=== PATIENT | female | born 1960 | race Caucasian/White ===

== ENCOUNTER → 2017-05-18 16:05 | Outpatient (CLI) | payer BC | END | disposition home or self-care (01) | LOC: D.MAMMO 13:45 | DX: Z12.31 Encounter for screening mammogram for malignant neoplasm of breast (principal) ==

== ENCOUNTER 2018-09-13 01:18 | Emergency (ER) | payer OTHER ==
[~2018-09-13] VITALS: Ht 170.2 cm; Wt 73.7 kg
[2018-09-13 01:24] VITALS: Ht 170.2 cm; Wt 73.7 kg
[2018-09-13] MEDS ORDERED: LIPITOR20 MG (01:26)
[2018-09-13] MEDS ORDERED: LISINOPRIL10 MG (01:26)
[2018-09-13] MEDS ORDERED: NORVASC2.5 MG (01:26)
[2018-09-13] MEDS ORDERED: COREG 3.1253.125 MG (01:26)
[2018-09-13] MEDS ORDERED: ULTRAM50 MG PO (02:11)
[2018-09-13 02:24] VITALS: BP 122/75
== END 2018-09-13 02:26 | disposition home or self-care (01) ==
LOC: D.ER 01:18
DX: G62.9 Polyneuropathy, unspecified (principal); M79.672 Pain in left foot; M79.671 Pain in right foot; I10 Essential (primary) hypertension

== ENCOUNTER 2018-10-21 15:00 | Emergency (ER) | payer OTHER ==
[~2018-10-21] VITALS: Ht 170.2 cm; Wt 74.8 kg
[~2018-10-21 15:00] MED LIST: COREG 3.1253.125 MG; LIPITOR20 MG; LISINOPRIL10 MG; NORVASC2.5 MG; ULTRAM50 MG PO
[2018-10-21 15:24] VITALS: Ht 170.2 cm; Wt 74.8 kg
[2018-10-21] MEDS ORDERED: AUGMENTIN 875-11 TAB PO (15:27)
[2018-10-21] MEDS ORDERED: BUPROPION HCL75 MG PO (15:32)
[2018-10-21] MEDS ORDERED: TRAZODONE HCL150 MG PO (15:32)
[2018-10-21] MEDS ORDERED: CARAFATE1 G PO (15:33)
[2018-10-21] MEDS ORDERED: HYDROCODON-ACE1 EAC2 PO (18:35)
[2018-10-21 19:12] VITALS: BP 163/97
== END 2018-10-21 19:00 | disposition home or self-care (01) ==
LOC: D.ER 15:00
DX: L03.114 Cellulitis of left upper limb (principal); W55.01XA Bitten by cat, initial encounter

== ENCOUNTER 2020-03-30 14:03 | Emergency (ER) | payer OTHER ==
[~2020-03-30] VITALS: Ht 170.2 cm; Wt 73.6 kg
[~2020-03-30 14:03] MED LIST changes: +AUGMENTIN 875-11 TAB PO; +BUPROPION HCL75 MG PO; +CARAFATE1 G PO; +HYDROCODON-ACE1 EAC2 PO; +TRAZODONE HCL150 MG PO
[2020-03-30 14:32] VITALS: BP 158/96; Ht 170.2 cm; Wt 73.6 kg
[2020-03-30] MEDS ORDERED: TYLENOL W/CODEI1 TAB PO (17:07)
[2020-03-30] MEDS ORDERED: CLEOCIN HCL300 MG PO (17:07)
== END 2020-03-30 18:05 | disposition home or self-care (01) ==
LOC: D.ER 14:03
DX: L03.114 Cellulitis of left upper limb (principal); S60.413A Abrasion of left middle finger, initial encounter; W18.30XA Fall on same level, unspecified, initial encounter; I10 Essential (primary) hypertension; E78.5 Hyperlipidemia, unspecified; K21.9 Gastro-esophageal reflux disease without esophagitis

== ENCOUNTER 2020-04-13 23:08 | Inpatient (IN) | payer OTHER ==
[~2020-04-13] VITALS: Ht 170.2 cm; Wt 73.0 kg
[~2020-04-13 23:08] MED LIST changes: +CLEOCIN HCL300 MG PO; +TYLENOL W/CODEI1 TAB PO
[2020-04-13 23:34] LABS: BASOPHILS 0.1 % (0-2); EOSINOPHILS 3.9 % (0-7); HEMATOCRIT 38.2 % (36.0-48.0); HEMOGLOBIN 12.9 g/dL (12-16); IMMATURE GRANULOCYTES 0.1 % (0-5); LYMPHOCYTES 31.6 % (15-50); MCH 31.2 pg (26.0-34.0); MCHC 33.8 g/dL (31.0-37.0); MCV 92.3 fL (80.0-100.0); MEAN PLATELET VOLUME 9.9 fL (7.4-10.4); MONOCYTES 6.3 % (2-11); PLATELET COUNT 260 10x3/uL (130-400); RBC 4.14 10x6/uL (4.00-5.40); RDW 12.6 % (11.5-14.5); WBC 7.1 10x3/uL (4.8-10.8)
[2020-04-13 23:46] LABS: CALC OSMOLALITY 273 mosm/kg (275-300); CALCIUM 9.4 mg/dL (8.5-10.1); CHLORIDE - SERUM 101 mmol/L (98-107); GLUCOSE 114 mg/dL (74-106); POTASSIUM - SERUM 3.8 mmol/L (3.5-5.1); SODIUM 136 mmol/L (136-145); UREA NITROGEN 15 mg/dL (7-18); eGFR NON AFRICAN AMERICAN 60 mL/min (90-120)
[2020-04-13 23:52] LABS: ALBUMIN 4.1 g/dL (3.4-5.0); ALKALINE PHOSPHATASE 115 U/L (30-120); ALT (SGPT) 28 U/L (10-68); BILIRUBIN - TOTAL 0.23 mg/dL (0.2-1.3); C-REACTIVE PROTEIN < 0.2 mg/dL (0.0-0.9)
[2020-04-14] VITALS (10 sets, daily range): BP systolic 129–176; BP diastolic 59–105; Ht 170.2 cm; Wt 73.0 kg
--- NOTE | 2020-04-14 00:07 | NUR ---
PT TO CT AT THIS TIME.
--- NOTE | 2020-04-14 00:15 | NUR ---
PT BACK FROM CT AT THIS TIME.
--- NOTE | 2020-04-14 02:11 | NUR ---
PT TO ROOM 2227 VIA WHEELCHAIR ACCOMPANIED BY HOSPITAL STAFF. AMBULATES AROUND ROOM WITHOUT ISSUE.
[2020-04-14] MEDS ORDERED: HYDROCODON-ACE1 EAC7 PO (02:41)
[2020-04-14] MEDS ORDERED: VALIUM 2 MG TAB2 MG PO (02:42)
[2020-04-14] MEDS ORDERED: ZYRTEC10 MG PO (02:43)
--- NOTE | 2020-04-14 07:15 | NUR ---
RECEIVED BEDSIDE REPORT. PT SITTING UP IN BED, A&O X4. C/O PAIN 5/10 IN LEFT MIDDLE FINGER. PIV IN R FOREARM, PATENT AND INFUSING, NO REDNESS OR SWELLING. REDNESS, SWELLING, IMPAIRED ROM IN LEFT MIDDLE FINGER, PLANNED I&D TODAY. FULL DENTURES AT BEDSIDE. PT ABLE TO AMBULATE WITHOUT ASSIST. EDUCATED PT ON PLANNED PROCEDURE, CL AND NEEDS. BED LOW, RAILS X2. CL IN REACH. WILL CONTINUE TO MONITOR.
--- NOTE | 2020-04-14 09:30 | NUR ---
ASSISTED PT IN CHG BATH, EKG PERFORMED, JEWELRY REMOVED, CONSENTS SIGNED. PT VERBALIZED UNDERSTANDING AND SIGNED CONSENT FORMS. WILL CONTINUE TO MONITOR.
--- NOTE | 2020-04-14 10:15 | NUR ---
GAVE PREOP MEDS, D/C IV PUMP. OR NURSE ESCORTED PT VIA BED TO OR.
--- NOTE | 2020-04-14 11:30 | NUR ---
PT ARRIVED BACK TO FLOOR FROM PROCEDURE. RECEIVED REPORT, VS WNL. PT ASLEEP, EASY TO AROUSE. STARTED IV FLUIDS AND GAVE MEDS, PT TOLERATED WELL. PROVIDED ICE WATER AND SET VS EQUIPMENT FOR Q15 MIN. BED LOW, RAILS X2. CL IN REACH, WILL CONTINUE TO MONITOR.
--- NOTE | 2020-04-14 12:44 | OP ---
PATIENT NAME: RICHARD GOMEZ MEDICAL RECORD: [id number] :62 LOCATION:[id number] ADMISSION DATE:04/14/20 SURGEON: RADHA SALES MD DATE OF OPERATION: 04/14/2020 PREOPERATIVE DIAGNOSIS: Osteomyelitis of the left long finger proximal interphalangeal joint. POSTOPERATIVE DIAGNOSIS: Osteomyelitis of the left long finger proximal interphalangeal joint. PROCEDURE: Excisional debridement to include skin, subcutaneous tissue, portions of fascia and bone. SURGEON: Radha Sales MD DRY KILN OPERATOR: MARIELOS Abernathy ANESTHESIA: General. INTRAOPERATIVE COMPLICATIONS: None. SUMMARY OF PATHOLOGIC FINDINGS: The patient did have erosive changes about the proximal aspect of the condyles with intra-articular purulence. This was cultured. The patient's extensor mechanism was eroded through and required reapproximation with stabilization postoperatively. OPERATIVE SUMMARY IN DETAIL: After obtaining the appropriate preoperative orthopedic surgery consent as well as anesthetic consultation, evaluation and clearance, the patient was brought to the operating room and placed on the operating table in a supine position. After adequate general laryngeal mask airway was administered, tourniquet was placed about the proximal aspect of the left upper extremity. Left upper extremity was then prepped and draped in routine sterile fashion. At this point, appropriate timeout was taken and agreed upon by all given the patient's unique identifiers. The arm was elevated and exsanguinated, tourniquet inflated to 250 mmHg. A Z-plasty incision was made over the knuckle as the patient's purulence was right in the midline. The flaps were very gently elevated and substantial amounts of purulence and granulation tissue was noted. Cultures were taken, all nonviable-appearing tissue was removed. The patient did have perforation and almost complete destruction of the dorsal eugene. The residual nerve that had not been completely macerated was incised and gently retracted to reveal the patient's articular surface. Findings as noted were seen. Copious irrigation was followed by micro curettage as well as rongeur debridement to remove any parts of the bone that appeared to be osteomyelitic. Again, further irrigation was carried out. Having completed a substantial irrigation, the dorsal eugene was reapproximated with 3-0 Vicryl while holding the finger straight. Good reapproximation and lateral reconstruction was achieved. Having completed this, the Z-plasty was closed with 4-0 Prolene in routine interrupted fashion. Sterile dressings were applied. A palmar splint was applied to maintain the DIP joint straight. Having completed this, the tourniquet was deflated. The patient was awakened and taken to the recovery room in stable condition. All final needle and sponge counts were correct. TRANSINT:[id number] Voice Confirmation ID: [id number] DOCUMENT ID: [id number] OPERATIVE REPORT [id number] RICHARD GOMEZ MD, RADHA ESPARZA at 1244 CC: [id number] DICTATION DATE: 04/14/20 1110 FLYING TEACHER: 04/14/20 1133 ADM IN [place] [id number] [place] [address]
--- NOTE | 2020-04-14 13:15 | NUR ---
PT C/O PAIN 03/05, PROVIDED PAIN MEDS PER ORDER. BED LOW, CL IN REACH.
--- NOTE | 2020-04-14 16:00 | NUR ---
PT C/O 9/10 PAIN IN HAND, PROVIDED PAIN MEDS PER ORDER. PROVIDED PT WITH ICE PACK. BED LOW, CL IN REACH.
--- NOTE | 2020-04-14 17:30 | NUR ---
PT C/O STABBING PAIN 9/10 IN HAND, PROVIDED PAIN MEDS PER ORDER, PROVIDED NEW ICE PACK.
--- NOTE | 2020-04-14 19:00 | NUR ---
BEDSIDE REPORT RECEIVED AND CARE OF PT ASSUMED. PT LYING IN MID SPARKS'S POSITION WITH LEFT HAND PROPPED UP ON PILLOW WITH ICE PACK IN USE. IV TO RIGHT FA PATENT WITH NS INFUSING AT 100 ML/HR. WILL MONITOR CLOSELY FOR NEEDS.
--- NOTE | 2020-04-14 20:05 | NUR ---
GAVE SCHEDULED ZOZYN AND PRN MORPHINE PER REQUEST FOR PAIN.
--- NOTE | 2020-04-14 22:09 | NUR ---
HS MEDICATIONS GIVEN TO INCLUDE MORPHINE 4 MG IVP PER REQUEST FOR PAIN. WILL CONTINUE TO MONITOR CLOSELY FOR NEEDS.
[2020-04-15 00:31] VITALS: BP 137/87
[2020-04-15 05:57] VITALS: BP 136/79
[2020-04-15 06:11] LABS: BASOPHILS 0.5 % (0-2); EOSINOPHILS 6.8 % (0-7); HEMOGLOBIN 11.4 g/dL (12-16); IMMATURE GRANULOCYTES 0.2 % (0-5); LYMPHOCYTES 37.6 % (15-50); MCH 30.1 pg (26.0-34.0); MCHC 32.6 g/dL (31.0-37.0); MCV 92.3 fL (80.0-100.0); MEAN PLATELET VOLUME 10.6 fL (7.4-10.4); MONOCYTES 5.6 % (2-11); NEUTROPHILS 49.3 % (40-80); PLATELET COUNT 221 10x3/uL (130-400); RBC 3.79 10x6/uL (4.00-5.40); RDW 12.6 % (11.5-14.5)
[2020-04-15 06:16] LABS: WBC 4.4 10x3/uL (4.8-10.8)
[2020-04-15 07:13] LABS: ALBUMIN 3.2 g/dL (3.4-5.0); ALKALINE PHOSPHATASE 94 U/L (30-120); ALT (SGPT) 27 U/L (10-68); BILIRUBIN - TOTAL 0.54 mg/dL (0.2-1.3); CALC OSMOLALITY 278 mosm/kg (275-300); CALCIUM 8.7 mg/dL (8.5-10.1); CARBON DIOXIDE 26.3 mmol/L (21.0-32.0); CHLORIDE - SERUM 106 mmol/L (98-107); CREATININE - SERUM 0.8 mg/dL (0.6-1.3); GLUCOSE 100 mg/dL (74-106); POTASSIUM - SERUM 3.8 mmol/L (3.5-5.1); PROTEIN - SERUM 6.5 g/dL (6.4-8.2); SODIUM 141 mmol/L (136-145); eGFR NON AFRICAN AMERICAN 78 mL/min (90-120)
[2020-04-15 07:15] LABS: UREA NITROGEN 6 mg/dL (7-18)
[2020-04-15 08:16] VITALS: BP 143/83
--- NOTE | 2020-04-15 08:35 | NUR ---
RESTING IN BED WITH EYES OPEN WATCHING TV, ALERT AND ORIENTED. IV LOCATED TO LEFT FOREARM CURRENTLY RUNNNG NS @ 100ML. NO CURRENT S/S OF DISTRESS NOTED AT THIS TIME, DENIES NEEDS OTHER THAN NEEDING MORE ICE FOR ICE PACK. WILL CONT TO MONITOR.
--- NOTE | 2020-04-15 10:50 | NUR ---
PT REPORTS THROBBING PAIN 10/10, ADMINISTERED NORCO PER DRS ORDERS. WILL CONT TO MONITOR.
[2020-04-15 12:23] VITALS: BP 143/88
[2020-04-15 16:40] VITALS: BP 145/85
--- NOTE | 2020-04-15 19:00 | NUR ---
BEDSIDE REPORT RECEIVED AND CARE OF PT ASSUMED. PT SITTING UP IN BED WATCHING TV. ANGI WRAP ON LEFT ARM CLEAN AND DRY. IV TO RIGHT FA PATENT WITH NS INFUSING AT 50 ML/HR. WILL MONITOR FOR NEEDS.
--- NOTE | 2020-04-15 21:00 | NUR ---
PT SPONGE BATHED AND WASHED HAIR WITH NO RINSE CAP. ALL LINENS AND GOWN CHANGED.
[2020-04-15 21:16] VITALS: BP 145/86
--- NOTE | 2020-04-15 21:16 | NUR ---
HS MEDICATIONS GIVEN TO INCLUDE NORCO PO PRN ORDER, PER REQUEST FOR PAIN. WILL CONTINUE TO MONITOR FOR NEEDS.
[2020-04-16] VITALS (7 sets, daily range): BP systolic 124–164; BP diastolic 61–101
[2020-04-16 05:13] LABS: BASOPHILS 0.2 % (0-2); EOSINOPHILS 8.3 % (0-7); HEMATOCRIT 36.2 % (36.0-48.0); HEMOGLOBIN 11.7 g/dL (12-16); IMMATURE GRANULOCYTES 0.2 % (0-5); LYMPHOCYTES 40.8 % (15-50); MCH 29.7 pg (26.0-34.0); MCHC 32.3 g/dL (31.0-37.0); MCV 91.9 fL (80.0-100.0); MEAN PLATELET VOLUME 10.7 fL (7.4-10.4); MONOCYTES 6.7 % (2-11); NEUTROPHILS 43.8 % (40-80); PLATELET COUNT 233 10x3/uL (130-400); RBC 3.94 10x6/uL (4.00-5.40); RDW 12.3 % (11.5-14.5)
[2020-04-16 05:43] LABS: ALBUMIN 3.4 g/dL (3.4-5.0); ANION GAP 11.3 mmol/L (8-16); BILIRUBIN - TOTAL 0.39 mg/dL (0.2-1.3); CALCIUM 9.1 mg/dL (8.5-10.1); CARBON DIOXIDE 29.3 mmol/L (21.0-32.0); CREATININE - SERUM 0.9 mg/dL (0.6-1.3); POTASSIUM - SERUM 3.6 mmol/L (3.5-5.1); PROTEIN - SERUM 6.9 g/dL (6.4-8.2)
--- NOTE | 2020-04-16 16:00 | MORECARE ---
CASE MANAGEMENT DISCHARGE SUMMARY PATIENT: RICHARD GOMEZ UNIT: [id number] ADM DATE: 04/14/20 AGE: 60 : 62 SEX: F ROOM/BED: D.2227 AUTHOR: MILTON GERBER PHYSICIAN: REFERRING PHYSICIAN: RADHA SALES MD DATE OF SERVICE: 04/16/20 Discharge Plan Patient Name: RICHARD GOMEZ Facility: [facility]:[place] : 1960 Planned Disposition: Anticipated Discharge Date: Discharge Date: Expected LOS: Initial Reviewer: [id number] Initial Review Date: 04/14/2020 Generated: 04/16/20 5:00 pm Comments DCP- Discharge Planning Updated by [email or web address]: Jennie Horn on 04/16/20 3:[address] Patient Name: RICHARD GOMEZ Admission Status: ER Accout number: [id number] Admission Date: 04-14-2020 : 1960 Admission Diagnosis: Attending: RADHA SALES Current LOS: 2 Anticipated DC Date: Planned Disposition: Primary Insurance: [facility] PPO Discharge Planning Comments: CM met with patient at bedside after explaining CM role and obtaining verbal consent. CM discussed availability / needs of home health, REHAB and medical equipment. PATIENT MAY NEED IV ANTIBIOTICS AT DISCHARGE. SHE STATES SHE DOES NOT WANT HOME HEALTH. I WILL TALK WITH HER MORE ONCE WE KNOW WHAT ANTIBIOTIC SHE WILL BE GOING HOME WITH. CM TO FOLLOW AND ASSIST NEEDED. Senior Accounting Manager: Jennie Horn DCPIA - Discharge Planning Initial Assessment Updated by [email or web address]: Jennie Horn on 04/16/20 3:58 pm * Is the patient Alert and Oriented? Yes * PCP SKETAS * Pharmacy [facility] * Preadmission Environment Home with Family * ADLs Independent * Community resources currently utilized None * Additional services required to return to the preadmission environment? Yes * Can the patient safely return to the preadmission environment? Yes * Has this patient been hospitalized within the prior 30 days at any hospital? No Patient Name: RICHARD GOMEZ Page [phone] at 1600 All edits/amendments must be made on the electronic document DICTATION DATE: 04/16/201599 DISK RECORDIST: DM 04/16/201599 RPT#: [id number] DC DATE: STATUS: ADM IN [facility] [address] [place] [address] END OF REPORT
--- NOTE | 2020-04-16 19:00 | NUR ---
BEDSIDE REPORT RECEIVED AND CARE OF PT ASSUMED. PT SITTING UP IN BED WATCHING TV. IV TO RIGHT FA PATENT WITH NS INFUSING AT 50 ML/HR. ANGI WRAP ON LEFT HAND / ARM CLEAN AND INTACT. WILL MONITOR FOR NEEDS.
--- NOTE | 2020-04-16 22:23 | NUR ---
HS MEDICATIONS GIVEN. GAVE NORCO PO PER PRN ORDER FOR PAIN.
[2020-04-17] VITALS: BP 155/73
[2020-04-17 04:00] VITALS: BP 145/93
[2020-04-17 05:44] LABS: BASOPHILS 0.4 % (0-2); EOSINOPHILS 7.4 % (0-7); HEMATOCRIT 38.9 % (36.0-48.0); HEMOGLOBIN 12.9 g/dL (12-16); LYMPHOCYTES 37.8 % (15-50); MCH 30.4 pg (26.0-34.0); MCHC 33.2 g/dL (31.0-37.0); MCV 91.5 fL (80.0-100.0); MEAN PLATELET VOLUME 10.3 fL (7.4-10.4); MONOCYTES 5.8 % (2-11); NEUTROPHILS 48.6 % (40-80); PLATELET COUNT 225 10x3/uL (130-400); RBC 4.25 10x6/uL (4.00-5.40); RDW 12.4 % (11.5-14.5)
[2020-04-17 06:42] LABS: ALBUMIN 3.5 g/dL (3.4-5.0); ANION GAP 11.1 mmol/L (8-16); BILIRUBIN - TOTAL 0.41 mg/dL (0.2-1.3); CALCIUM 9.5 mg/dL (8.5-10.1); POTASSIUM - SERUM 4.1 mmol/L (3.5-5.1); PROTEIN - SERUM 6.9 g/dL (6.4-8.2)
--- NOTE | 2020-04-17 07:49 | NUR ---
PATIENT IN BED. AWAKE AND ALERT. FREE FROM SIGNS OF DISTRESS. DENIES PAIN OR NEEDS AT THIS TIME. BED LOW POSITION, CALL LIGHT IN REACH. WILL CONTINUE TO MONITOR.
[2020-04-17 08:56] VITALS: BP 144/93
--- NOTE | 2020-04-17 11:17 | NUR ---
Order received for PICC placement. On arrival, PICC discussed with patient and written consent obtained. Using site rite ultrasound, right upper arm basilic vein identified. Prep, drape and 1% xylocaine to site. Vein accessed and double lumen PICC inserted to 43 cm. Both lumens flush easily and with good blood return. Site verification using 3CG with rhythm strip. Site dressed with statlock, biopatch and tegaderm dressing. Patient tolerated well with less than 5 ml blood loss. Kristin Gray RN
[2020-04-17 12:20] VITALS: BP 140/80
--- NOTE | 2020-04-17 13:33 | MORECARE ---
CASE MANAGEMENT DISCHARGE SUMMARY PATIENT: RICHARD GOMEZ UNIT: [id number] ADM DATE: 04/14/20 AGE: 60 : 62 SEX: F ROOM/BED: D.2227 AUTHOR: ZABRINA,DOC PHYSICIAN: REFERRING PHYSICIAN: RADHA SALES MD DATE OF SERVICE: 04/17/20 Discharge Plan Patient Name: RICHARD GOMEZ Facility: [facility]:[place] : 1960 Planned Disposition: Anticipated Discharge Date: Discharge Date: Expected LOS: Initial Reviewer: [email or web address] Initial Review Date: 04/14/2020 Generated: 04/17/20 2:33 pm Comments DCP- Discharge Planning Updated by [email or web address]: Re Brown on 04/17/20 12:[address] Patient has been set up for Outpatient IV ABX at [facility]. I spoke with Nidia. Patient will need to go to the front entrance at 1400 registration everyday. She will start on . DCP- Discharge Planning Updated by [email or web address]: Jennie Horn on 04/16/20 3:[address] Patient Name: RICHARD GOMEZ Admission Status: ER Accout number: [id number] Admission Date: 04-14-2020 : 1960 Admission Diagnosis: Attending: RADHA SALES Current LOS: 2 Anticipated DC Date: Planned Disposition: Primary Insurance: [facility] PPO Discharge Planning Comments: CM met with patient at bedside after explaining CM role and obtaining verbal consent. CM discussed availability / needs of home health, REHAB and medical equipment. PATIENT MAY NEED IV ANTIBIOTICS AT DISCHARGE. SHE STATES SHE DOES NOT WANT HOME HEALTH. I WILL TALK WITH HER MORE ONCE WE KNOW WHAT ANTIBIOTIC SHE WILL BE GOING HOME WITH. CM TO FOLLOW AND ASSIST NEEDED. Optics Test Technician: Jennie Horn DCPIA - Discharge Planning Initial Assessment Updated by [email or web address]: Jennie Horn on 04/16/20 3:58 pm * Is the patient Alert and Oriented? Yes * PCP SKETAS * Pharmacy [facility] * Preadmission Environment Home with Family * ADLs Independent * Community resources currently utilized None * Additional services required to return to the preadmission environment? Yes * Can the patient safely return to the preadmission environment? Yes * Has this patient been hospitalized within the prior 30 days at any hospital? No Last DP export: 04/16/20 3:00 p Patient Name: RICHARD GOMEZ Page [phone] at 1333 All edits/amendments must be made on the electronic document DICTATION DATE: 04/17/201332 BEATER MACHINE OPERATOR: SUNITHA 04/17/20 1333 RPT#: [id number] DC DATE: STATUS: ADM IN [facility] [address] [place] [address] END OF REPORT
[2020-04-17 18:08] VITALS: BP 144/97
--- NOTE | 2020-04-17 18:13 | NUR ---
I have reviewed this patient and I concur with the Shift Assessment completed by the Licensed Practical Nurse today this shift.
--- NOTE | 2020-04-17 19:40 | NUR ---
rESTIN IN BED ALERT AND ORENTED ABLE TO VOICE NEEDS AND WANTS TO STAFF. ON ROOM AIR PICC IN PLACE TO UPPER RIGHT ARE. RIGHT FOREARM IN PLACE AND PATEN WITH NS PER ORDERS. DRESSING INTACT TO LEFT MIDDLE FINGER. NO NEEDS AT THIS TIME NO C/O PAIN WATER AND CALL LIGHT IN REACH.
[2020-04-17 20:00] VITALS: BP 151/97
[2020-04-18] VITALS: BP 186/90
[2020-04-18 04:00] VITALS: BP 149/86
[2020-04-18 06:48] LABS: BASOPHILS 0.3 % (0-2); EOSINOPHILS 6.3 % (0-7); HEMATOCRIT 38.7 % (36.0-48.0); HEMOGLOBIN 12.7 g/dL (12-16); LYMPHOCYTES 35.5 % (15-50); MCH 30.2 pg (26.0-34.0); MCHC 32.8 g/dL (31.0-37.0); MCV 92.1 fL (80.0-100.0); MONOCYTES 6.6 % (2-11); NEUTROPHILS 51.3 % (40-80); PLATELET COUNT 232 10x3/uL (130-400); RDW 12.5 % (11.5-14.5)
[2020-04-18 07:03] LABS: WBC 6.4 10x3/uL (4.8-10.8)
--- NOTE | 2020-04-18 07:43 | NUR ---
PATIENT BACK TO BED FROM BATHROOM. FREE FROM SIGNS OF DISTRESS. DENIES PAIN OR NEEDS AT THIS TIME. BED LOW POSITION, CALL LIGHTIN REACH. WILL CONTINUE TO MONITOR.
[2020-04-18 07:49] LABS: ALBUMIN 3.7 g/dL (3.4-5.0); ALKALINE PHOSPHATASE 97 U/L (30-120); ALT (SGPT) 29 U/L (10-68); BILIRUBIN - TOTAL 0.27 mg/dL (0.2-1.3); CALC OSMOLALITY 279 mosm/kg (275-300); CALCIUM 9.6 mg/dL (8.5-10.1); CARBON DIOXIDE 25.7 mmol/L (21.0-32.0); CHLORIDE - SERUM 102 mmol/L (98-107); CREATININE - SERUM 0.8 mg/dL (0.6-1.3); GLUCOSE 109 mg/dL (74-106); PROTEIN - SERUM 7.4 g/dL (6.4-8.2); SODIUM 139 mmol/L (136-145); UREA NITROGEN 15 mg/dL (7-18); eGFR NON AFRICAN AMERICAN 78 mL/min (90-120)
[2020-04-18] MEDS ORDERED: PERCOCET 10-321 EAC1 PO (09:03)
[2020-04-18] MEDS ORDERED: ROCEPHIN 1 GM/D51 G1 IV (09:03)
[2020-04-18 09:44] VITALS: BP 157/103
--- NOTE | 2020-04-18 10:38 | MORECARE ---
CASE MANAGEMENT DISCHARGE SUMMARY PATIENT: RICHARD GOMEZ UNIT: [id number] ADM DATE: 04/14/20 AGE: 60 : 62 SEX: F ROOM/BED: D.2227 AUTHOR: ZABRINA,DOC PHYSICIAN: REFERRING PHYSICIAN: RADHA SALES MD DATE OF SERVICE: 04/18/20 Discharge Plan Patient Name: RICHARD GOMEZ Facility: [facility]:[place] : 1960 Planned Disposition: Anticipated Discharge Date: Discharge Date: Expected LOS: Initial Reviewer: [email or web address] Initial Review Date: 04/14/2020 Generated: 04/18/20 11:37 am Comments DCP- Discharge Planning Updated by [id number]: Jennie Horn on 04/18/20 9:[address] Patient Name: RICHARD GOMEZ Admission Status: ER Accout number: [id number] Admission Date: 04-14-2020 : 1960 Admission Diagnosis:CUTANEOUS ABSCESS OF LEFT HAND Attending: RADHA SALES Current LOS: 4 Anticipated DC Date: Planned Disposition: Primary Insurance: [employer] PPO Discharge Planning Comments: PATIENT IS DISCHARGING TO HOME TODAY. IV INFUSIONS HAVE BEEN SET UP DAILY WITH OUTPATIENT SERVICES FOR 10:30AM DAILY. PATIENT ALSO GIVEN CONTACT INFORMATION FOR [facility]. PATIENT HAS PICC LINE. CM TO FOLLOW AND ASSIST NEEDED. Neurourologist: Jennie Horn DCP- Discharge Planning Updated by [email or web address]: Re Brown on 04/17/20 12:[address] Patient has been set up for Outpatient IV ABX at [facility]. I spoke with Nidia. Patient will need to go to the front entrance at 1400 registration everyday. She will start on . DCP- Discharge Planning Updated by [email or web address]: Jennie Horn on 04/16/20 3:[address] Patient Name: RICHARD GOMEZ Admission Status: ER Accout number: [id number] Admission Date: 04-14-2020 : 1960 Admission Diagnosis: Attending: RADHA SALES Current LOS: 2 Anticipated DC Date: Planned Disposition: Primary Insurance: [employer] PPO Discharge Planning Comments: CM met with patient at bedside after explaining CM role and obtaining verbal consent. CM discussed availability / needs of home health, REHAB and medical equipment. PATIENT MAY NEED IV ANTIBIOTICS AT DISCHARGE. SHE STATES SHE DOES NOT WANT HOME HEALTH. I WILL TALK WITH HER MORE ONCE WE KNOW WHAT ANTIBIOTIC SHE WILL BE GOING HOME WITH. CM TO FOLLOW AND ASSIST NEEDED. Neurourologist: Jennie Horn DCPIA - Discharge Planning Initial Assessment Updated by [email or web address]: Jennie Horn on 04/16/20 3:58 pm * Is the patient Alert and Oriented? Yes * PCP MY * Pharmacy [facility] * Preadmission Environment Home with Family * ADLs Independent * Community resources currently utilized None * Additional services required to return to the preadmission environment? Yes * Can the patient safely return to the preadmission environment? Yes * Has this patient been hospitalized within the prior 30 days at any hospital? No Last DP export: 04/17/20 12:33 p Patient Name: RICHARD GOMEZ Page [id number] at 1038 All edits/amendments must be made on the electronic document DICTATION DATE: 04/18/20 1037 HEALTH INFORMATION TECHNICIAN: SUNITHA 04/18/20 1037 RPT#: [id number] DC DATE: STATUS: ADM IN [facility] [address] [place] [address] END OF REPORT
[2020-04-18 12:13] VITALS: BP 148/93
--- NOTE | 2020-04-18 12:30 | NUR ---
DISCHARGE TEACHING COMPLETE. NO FURTHER QUESTIONS. PERIPHERAL IV REMOVED FROM RIGHT FOREARM. IV CATH TIP INTACT. PATIENT EATING LUNCH. WAITING FOR RIDE TO ARRIVE.
[2020-04-18 12:35] LABS: ERYTHROCYTE SEDIMENTATION RATE 15 mm/hr (0-30)
--- NOTE | 2020-04-18 12:57 | NUR ---
PATIENT LEFT UNIT VIA WHEELCHAIR TO HOME. BELONGINGS GATHERED.
--- NOTE | 2020-04-19 09:37 | MORECARE ---
CASE MANAGEMENT DISCHARGE SUMMARY PATIENT: RICHARD GOMEZ UNIT: [id number] ADM DATE: 04/14/20 AGE: 60 : 62 SEX: F ROOM/BED: D.2227 AUTHOR: ZABRINA,DOC PHYSICIAN: REFERRING PHYSICIAN: RADHA SALES MD DATE OF SERVICE: 04/19/20 Discharge Plan Patient Name: RICHARD GOMEZ Facility: [facility]:[place] : 1960 Planned Disposition: Anticipated Discharge Date: Discharge Date: 04/18/2020 Expected LOS: Initial Reviewer: [email or web address] Initial Review Date: 04/14/2020 Generated: 04/19/20 10:36 am Comments DCP- Discharge Planning Updated by [email or web address]: Jennie Horn on 04/18/20 9:[address] Patient Name: RICHARD GOMEZ Admission Status: ER Accout number: [id number] Admission Date: 04-14-2020 : 1960 Admission Diagnosis:CUTANEOUS ABSCESS OF LEFT HAND Attending: RADHA SALES Current LOS: 4 Anticipated DC Date: Planned Disposition: Primary Insurance: [email or web address] PPO Discharge Planning Comments: PATIENT IS DISCHARGING TO HOME TODAY. IV INFUSIONS HAVE BEEN SET UP DAILY WITH OUTPATIENT SERVICES FOR 10:30AM DAILY. PATIENT ALSO GIVEN CONTACT INFORMATION FOR [facility]. PATIENT HAS PICC LINE. CM TO FOLLOW AND ASSIST NEEDED. Reinspector: Jennie Horn DCP- Discharge Planning Updated by [email or web address]: Re Brown on 04/17/20 12:[address] Patient has been set up for Outpatient IV ABX at [facility]. I spoke with Nidia. Patient will need to go to the front entrance at 1400 registration everyday. She will start on . DCP- Discharge Planning Updated by [id number]: Jennie Horn on 04/16/20 3:[address] Patient Name: RICHARD GOMEZ Admission Status: ER Accout number: [id number] Admission Date: 04-14-2020 : 1960 Admission Diagnosis: Attending: RADHA SALES Current LOS: 2 Anticipated DC Date: Planned Disposition: Primary Insurance: [email or web address] PPO Discharge Planning Comments: CM met with patient at bedside after explaining CM role and obtaining verbal consent. CM discussed availability / needs of home health, REHAB and medical equipment. PATIENT MAY NEED IV ANTIBIOTICS AT DISCHARGE. SHE STATES SHE DOES NOT WANT HOME HEALTH. I WILL TALK WITH HER MORE ONCE WE KNOW WHAT ANTIBIOTIC SHE WILL BE GOING HOME WITH. CM TO FOLLOW AND ASSIST NEEDED. Reinspector: Jennie Horn DCPIA - Discharge Planning Initial Assessment Updated by [email or web address]: Jennie Horn on 04/16/20 3:58 pm * Is the patient Alert and Oriented? Yes * PCP MY * Pharmacy [facility] * Preadmission Environment Home with Family * ADLs Independent * Community resources currently utilized None * Additional services required to return to the preadmission environment? Yes * Can the patient safely return to the preadmission environment? Yes * Has this patient been hospitalized within the prior 30 days at any hospital? No Last DP export: 04/18/20 9:38 a Patient Name: RICHARD GOMEZ Page [phone] at 0937 All edits/amendments must be made on the electronic document DICTATION DATE: 04/19/20935 BRANCH MAKER: SUNITHA 04/19/20935 RPT#: [id number] DC DATE:04/18/20 STATUS: DIS IN [place] [id number] [place] [address] END OF REPORT
== END 2020-04-18 12:58 | disposition home or self-care (01) | DRG 580 ==
LOC: D.ER 23:08 → D.MS 04-14 01:06
PROVIDERS: Emergency Medicine; Family Medicine; ADMIT Orthopaedic Surgery; ATTEND Orthopaedic Surgery
PROC: 0PBV0ZZ Excision of Left Finger Phalanx, Open Approach (ICD-10-PCS; principal; 2020-04-14 09:23)
DX: L02.512 Cutaneous abscess of left hand (principal); M86.9 Osteomyelitis, unspecified; I10 Essential (primary) hypertension; E78.5 Hyperlipidemia, unspecified; J45.909 Unspecified asthma, uncomplicated; K21.9 Gastro-esophageal reflux disease without esophagitis; F32.9 Major depressive disorder, single episode, unspecified; H26.9 Unspecified cataract

== ENCOUNTER 2020-04-19 10:06 | Outpatient (CLI) | payer OTHER ==
[~2020-04-19] VITALS: Ht 170.2 cm; Wt 73.2 kg
[~2020-04-19 10:06] MED LIST changes: +HYDROCODON-ACE1 EAC7 PO; +PERCOCET 10-321 EAC1 PO; +ROCEPHIN 1 GM/D51 G1 IV; +VALIUM 2 MG TAB2 MG PO; +ZYRTEC10 MG PO
[2020-04-19 11:25] VITALS: BP 153/101; Ht 170.2 cm; Wt 73.2 kg
== END 2020-04-19 12:00 | disposition home or self-care (01) ==
LOC: D.OPS 10:06
PROVIDERS: ATTEND Orthopaedic Surgery
DX: M86.9 Osteomyelitis, unspecified (principal)

== ENCOUNTER 2020-04-20 10:38 | Outpatient (CLI) | payer OTHER ==
[~2020-04-20] VITALS: Ht 170.2 cm; Wt 73.2 kg
[2020-04-20 11:59] VITALS: BP 138/78; Ht 170.2 cm; Wt 73.2 kg
== END 2020-04-20 12:28 ==
LOC: D.OPS 10:38
PROVIDERS: ATTEND Orthopaedic Surgery
DX: M86.9 Osteomyelitis, unspecified (principal)

== ENCOUNTER 2020-04-21 10:35 | Outpatient (CLI) | payer OTHER ==
[~2020-04-21] VITALS: Ht 170.2 cm; Wt 73.2 kg
--- NOTE | 2020-04-21 10:30 | NUR ---
RECEIVED TO ROOM 1204 VIA WC AT OUTPATIENT. A/O X3. PICC TO RIGHT UPPER ARM PATENT WITHOUT REDNESS AT INSERTION SITE.
--- NOTE | 2020-04-21 11:11 | NUR ---
JENI UP AT THIS TIME. ALL QUESTIONS ANSWERED. DENIES NEEDS.
[2020-04-21 11:47] VITALS: Ht 170.2 cm; Wt 73.2 kg
[2020-04-21 12:17] VITALS: BP 111/84
--- NOTE | 2020-04-21 12:45 | NUR ---
INFUSION COMPLETED. PICC HEPARINIZED AT THIS TIME. PATIENT DISCHARGED AMBULATORY TO HOME.
== END 2020-04-21 12:30 | disposition home or self-care (01) ==
LOC: OBSVTIME → D.OPS 10:35 → D.M3 10:45 → OBSVTIME 10:45 → D.M3 12:30 → D.OPS 12:30 → D.M3 12:30
PROVIDERS: ATTEND Family Medicine
DX: M86.9 Osteomyelitis, unspecified (principal)

== ENCOUNTER 2020-04-22 10:50 | Outpatient (CLI) | payer OTHER ==
[~2020-04-22] VITALS: Ht 170.2 cm; Wt 73.2 kg
[2020-04-22 11:20] VITALS: BP 139/74; Ht 170.2 cm; Wt 73.2 kg
--- NOTE | 2020-04-22 11:25 | NUR ---
DRESSING INTACT TO LEFT HAND. PICC LINE INTACT TO RUE WITH PICC FLUSHED USING ASEPTIC TECHNIQUE WITH ABX INFUSING AT PRESCRIBED RATE. ENCOURAGED TO USE CALL LIGHT FOR ASSIST
--- NOTE | 2020-04-22 12:00 | NUR ---
PICC FLUSHED WITH SALINE AND HEPARIN POST INFUSION AND VERBALIZED UNDERSTANDING OF DISCHARGE INSTRUCTIONS
== END 2020-04-22 12:00 | disposition home or self-care (01) ==
LOC: D.OPS 10:50 → D.MS 10:50 → D.OPS 12:00
PROVIDERS: ATTEND Family Medicine
DX: M86.9 Osteomyelitis, unspecified (principal)

== ENCOUNTER 2020-04-23 10:53 | Outpatient (CLI) | payer OTHER ==
[~2020-04-23] VITALS: Ht 170.2 cm; Wt 73.2 kg
[2020-04-23 11:47] VITALS: Ht 170.2 cm; Wt 73.2 kg
[2020-04-23 12:19] LABS: BASOPHILS 0.3 % (0-2); EOSINOPHILS 4.2 % (0-7); HEMATOCRIT 37.8 % (36.0-48.0); HEMOGLOBIN 12.4 g/dL (12-16); IMMATURE GRANULOCYTES 0.2 % (0-5); LYMPHOCYTES 34.3 % (15-50); MCH 30.2 pg (26.0-34.0); MCHC 32.8 g/dL (31.0-37.0); MCV 92.2 fL (80.0-100.0); MEAN PLATELET VOLUME 11.5 fL (7.4-10.4); MONOCYTES 5.5 % (2-11); NEUTROPHILS 55.5 % (40-80); PLATELET COUNT 232 10x3/uL (130-400); RDW 12.3 % (11.5-14.5); WBC 6.4 10x3/uL (4.8-10.8)
[2020-04-23 12:28] LABS: CREATININE - SERUM 0.8 mg/dL (0.6-1.3); UREA NITROGEN 18 mg/dL (7-18)
[2020-04-23 12:38] LABS: C-REACTIVE PROTEIN < 0.2 mg/dL (0.0-0.9)
[2020-04-23 14:13] LABS: ERYTHROCYTE SEDIMENTATION RATE 29 mm/hr (0-30)
== END 2020-04-23 12:20 | disposition home or self-care (01) ==
LOC: D.OPS 10:53
PROVIDERS: ATTEND Orthopaedic Surgery
DX: M86.9 Osteomyelitis, unspecified (principal)

== ENCOUNTER 2020-04-24 10:20 | Outpatient (CLI) | payer OTHER ==
[~2020-04-24] VITALS: Ht 170.2 cm; Wt 73.2 kg
[2020-04-24 10:37] VITALS: Ht 170.2 cm; Wt 73.2 kg
--- NOTE | 2020-04-24 11:09 | NUR ---
1055 PT IS POSITIVE FOR LIFETIME SUICIDE SCREENING. PT SOUGHT TREATMENT AT THE TIME. REFUSES FURTHER EVALUATION AT THIS TIME.
--- NOTE | 2020-04-24 13:36 | NUR ---
1140 INFUSION COMPLETED, FLUSHED WITH NS AND HEPARIN.THRU PICC LINE, PT VOIDS AND RELEASED AMB.
== END 2020-04-24 11:50 | disposition home or self-care (01) ==
LOC: D.OPS 10:20
PROVIDERS: ATTEND Orthopaedic Surgery
DX: M86.9 Osteomyelitis, unspecified (principal)

== ENCOUNTER 2020-04-25 10:12 | Outpatient (CLI) | payer OTHER ==
[~2020-04-25] VITALS: Ht 170.2 cm; Wt 73.2 kg
[2020-04-25 10:49] VITALS: BP 118/82; Ht 170.2 cm; Wt 73.2 kg
== END 2020-04-25 11:21 | disposition home or self-care (01) ==
LOC: D.OPS 10:12
PROVIDERS: ATTEND Orthopaedic Surgery
DX: M86.9 Osteomyelitis, unspecified (principal)

== ENCOUNTER 2020-04-26 10:19 | Outpatient (CLI) | payer OTHER ==
[~2020-04-26] VITALS: Ht 170.2 cm; Wt 73.2 kg
[2020-04-26 11:00] VITALS: BP 118/89; Ht 170.2 cm; Wt 73.2 kg
== END 2020-04-26 11:30 | disposition home or self-care (01) ==
LOC: D.OPS 10:19
PROVIDERS: ATTEND Orthopaedic Surgery
DX: M86.9 Osteomyelitis, unspecified (principal)

== ENCOUNTER 2020-04-27 11:08 | Outpatient (CLI) | payer OTHER ==
[~2020-04-27] VITALS: Ht 170.2 cm; Wt 73.2 kg
[2020-04-27 12:05] VITALS: BP 115/69; Ht 170.2 cm; Wt 73.2 kg
== END 2020-04-27 12:29 | disposition home or self-care (01) ==
LOC: D.OPS 11:08
PROVIDERS: ATTEND Orthopaedic Surgery
DX: M86.9 Osteomyelitis, unspecified (principal)

== ENCOUNTER 2020-04-28 10:57 | Outpatient (CLI) | payer OTHER ==
[2020-04-27 12:05] VITALS: BMI 25.2
--- NOTE | 2020-04-28 11:30 | NUR ---
REC'D TO ROOM 2233 AT THIS TIME FOR OUTPATIENT ABTX THERAPY OF ROCEPHIN IV VIA PICC LINE. NO C/O NOTED OR VOICED. ORDERS WAS SCANNED DOWN TO PHARMACY. C/L IN REACH AT BEDSIDE.
--- NOTE | 2020-04-28 12:00 | NUR ---
ABTX THERAPY STARTED AT THIS TIME WITH S.A.S.H METHOD USED. TOLERATED WELL NO C/O NOTED. C/L IN REACH AT BEDSIDE.
--- NOTE | 2020-04-28 12:45 | NUR ---
IV THERAPY COMPLETED AT THIS TIME. PT WAS IN STABLE CONDITION UPON DEPARTURE.
== END 2020-04-28 13:12 | disposition home or self-care (01) ==
LOC: D.OPS 10:57 → D.MS 10:58 → D.OPS 13:12
PROVIDERS: ATTEND Orthopaedic Surgery
DX: M86.9 Osteomyelitis, unspecified (principal)

== ENCOUNTER 2020-04-29 10:20 | Outpatient (CLI) | payer OTHER ==
[~2020-04-29] VITALS: Ht 170.2 cm; Wt 73.2 kg
[2020-04-29 11:49] VITALS: BP 109/70; Ht 170.2 cm; Wt 73.2 kg
--- NOTE | 2020-04-29 12:37 | NUR ---
IV ABX COMPLETE. PICC FLUSHED ORDERED. DC INSTRUCTIONS,STATES UNDERSTANDING. LEFT UNIT WITH FAMILY FOR TRANSPORT HOME.
== END 2020-04-29 12:38 | disposition home or self-care (01) ==
LOC: D.OPS 10:20 → D.MS 10:21 → D.OPS 12:38
PROVIDERS: ATTEND Family Medicine
DX: M86.9 Osteomyelitis, unspecified (principal)

== ENCOUNTER 2020-04-30 11:01 | Outpatient (CLI) | payer OTHER ==
[~2020-04-30] VITALS: Ht 170.2 cm; Wt 73.2 kg
[2020-04-30 11:59] LABS: BASOPHILS 0.3 % (0-2); EOSINOPHILS 4.2 % (0-7); HEMATOCRIT 37.2 % (36.0-48.0); HEMOGLOBIN 12.2 g/dL (12-16); IMMATURE GRANULOCYTES 0.1 % (0-5); LYMPHOCYTES 34.1 % (15-50); MCH 30.3 pg (26.0-34.0); MCHC 32.8 g/dL (31.0-37.0); MCV 92.3 fL (80.0-100.0); MEAN PLATELET VOLUME 10.5 fL (7.4-10.4); MONOCYTES 5.2 % (2-11); NEUTROPHILS 56.1 % (40-80); PLATELET COUNT 251 10x3/uL (130-400); RBC 4.03 10x6/uL (4.00-5.40); RDW 12.2 % (11.5-14.5); WBC 6.9 10x3/uL (4.8-10.8)
[2020-04-30 12:08] VITALS: BP 126/82; Ht 170.2 cm; Wt 73.2 kg
[2020-04-30 12:19] LABS: CREATININE - SERUM 0.8 mg/dL (0.6-1.3); UREA NITROGEN 12 mg/dL (7-18)
[2020-04-30 12:20] LABS: C-REACTIVE PROTEIN < 0.2 mg/dL (0.0-0.9)
--- NOTE | 2020-04-30 12:37 | NUR ---
WEEKLY LABS OBTAINED AND PICC LINE DRESSING CHANGED. PRN ADAPTORS EXCHANED WELL.
[2020-04-30 13:04] LABS: ERYTHROCYTE SEDIMENTATION RATE 27 mm/hr (0-30)
== END 2020-04-30 12:38 | disposition home or self-care (01) ==
LOC: D.LAB 11:01 → D.OPS 11:01
PROVIDERS: ATTEND Orthopaedic Surgery
DX: M86.9 Osteomyelitis, unspecified (principal)

== ENCOUNTER 2020-05-01 11:43 | Outpatient (CLI) | payer OTHER ==
[~2020-05-01] VITALS: Ht 170.2 cm; Wt 73.2 kg
[2020-05-01 13:19] VITALS: BP 115/72; Ht 170.2 cm; Wt 73.2 kg
== END 2020-05-01 13:52 | disposition home or self-care (01) ==
LOC: D.OPS 11:43
PROVIDERS: ATTEND Orthopaedic Surgery
DX: M86.9 Osteomyelitis, unspecified (principal)

== ENCOUNTER 2020-05-02 09:25 | Outpatient (CLI) | payer OTHER ==
[~2020-05-02] VITALS: Ht 170.2 cm; Wt 73.2 kg
[2020-05-02 10:11] VITALS: BP 115/77; Ht 170.2 cm; Wt 73.2 kg
--- NOTE | 2020-05-02 10:32 | NUR ---
ROCEPHIN INFUSION COMPLETED. LINES FLUSHED WITH NS AND HEPARIN FLUSH PER ORDERS. NO OTHER NEEDS ASSESSED. DC'D HOME. ADVISED TO CALL OR COME BACK IF ANY PROBLEMS.
== END 2020-05-02 10:37 | disposition home or self-care (01) ==
LOC: D.OPS 09:25
PROVIDERS: ATTEND Orthopaedic Surgery
DX: M86.9 Osteomyelitis, unspecified (principal)

== ENCOUNTER 2020-05-03 11:17 | Outpatient (CLI) | payer OTHER ==
[~2020-05-03] VITALS: Ht 170.2 cm; Wt 73.2 kg
[2020-05-03 11:33] VITALS: BP 110/78; Ht 170.2 cm; Wt 73.2 kg
== END 2020-05-03 11:50 ==
LOC: D.OPS 11:17
PROVIDERS: ATTEND Orthopaedic Surgery
DX: M86.9 Osteomyelitis, unspecified (principal)

== ENCOUNTER 2020-05-04 11:29 | Outpatient (CLI) | payer OTHER ==
[~2020-05-04] VITALS: Ht 170.2 cm; Wt 73.2 kg
[2020-05-04 12:33] VITALS: BP 106/69; Ht 170.2 cm; Wt 73.2 kg
== END 2020-05-04 13:05 | disposition home or self-care (01) ==
LOC: D.OPS 11:29
PROVIDERS: ATTEND Orthopaedic Surgery
DX: M86.9 Osteomyelitis, unspecified (principal)

== ENCOUNTER 2020-05-05 10:56 | Outpatient (CLI) | payer OTHER ==
[~2020-05-05] VITALS: Ht 170.2 cm; Wt 73.2 kg
[2020-05-05 12:02] VITALS: BP 121/82; Ht 170.2 cm; Wt 73.2 kg
--- NOTE | 2020-05-05 12:06 | NUR ---
PICC LINE FLUSHED TO RUE WITH IVF INFUSING. NO S/S OF INFECTION/INFILTRATION OR REACTION NOTED.
--- NOTE | 2020-05-05 12:45 | NUR ---
IV ABX FINISHED AND FLUSHED WITH NS. VERBALIZED UNDERSTANDING OF DISCHARGE INSTRUCTIONS AND STABLE ON DISCHARGE
== END 2020-05-05 13:55 ==
LOC: D.OPS 10:56 → D.MS 11:07 → D.OPS 13:55
PROVIDERS: ATTEND Orthopaedic Surgery
DX: M86.9 Osteomyelitis, unspecified (principal)

== ENCOUNTER 2020-05-06 10:37 | Outpatient (CLI) | payer OTHER ==
[~2020-05-06] VITALS: Ht 170.2 cm; Wt 73.2 kg
[2020-05-06 11:07] VITALS: BP 133/73; Ht 170.2 cm; Wt 73.2 kg
--- NOTE | 2020-05-06 11:21 | NUR ---
PICC LINE FLUSHED WITH 10CC NS WITH IVABX INFUSING AT PREWCRIBED RATE WITH NO S/S OF INFECTION/INFILTRATION NOTED.
--- NOTE | 2020-05-06 12:15 | NUR ---
IV ABX FINISHED WITH PICC FLUSHED. VERBALIZED UNDERSTANDING OF DISCHARGE INSTRUCTIONS. STABLE AT TIME OF DISCHARGE.
== END 2020-05-06 14:09 | disposition home or self-care (01) ==
LOC: D.OPS 10:37 → D.MS 10:38 → D.OPS 14:09
PROVIDERS: ATTEND Family Medicine
DX: M86.9 Osteomyelitis, unspecified (principal)

== ENCOUNTER 2020-05-07 10:56 | Outpatient (CLI) | payer OTHER ==
[~2020-05-07] VITALS: Ht 170.2 cm; Wt 73.2 kg
[2020-05-07 11:33] VITALS: BP 105/67; Ht 170.2 cm; Wt 73.2 kg
[2020-05-07 12:11] LABS: BASOPHILS 0.2 % (0-2); HEMATOCRIT 34.2 % (36.0-48.0); HEMOGLOBIN 11.1 g/dL (12-16); IMMATURE GRANULOCYTES 0.2 % (0-5); LYMPHOCYTES 34.1 % (15-50); MCH 29.8 pg (26.0-34.0); MCHC 32.5 g/dL (31.0-37.0); MCV 91.9 fL (80.0-100.0); MEAN PLATELET VOLUME 10.7 fL (7.4-10.4); MONOCYTES 5.4 % (2-11); NEUTROPHILS 54.1 % (40-80); PLATELET COUNT 234 10x3/uL (130-400); RBC 3.72 10x6/uL (4.00-5.40); RDW 12.3 % (11.5-14.5); WBC 5.5 10x3/uL (4.8-10.8)
[2020-05-07 12:33] LABS: UREA NITROGEN 14 mg/dL (7-18)
[2020-05-07 12:35] LABS: C-REACTIVE PROTEIN < 0.2 mg/dL (0.0-0.9)
[2020-05-07 13:48] LABS: ERYTHROCYTE SEDIMENTATION RATE 28 mm/hr (0-30)
== END 2020-05-07 12:45 | disposition home or self-care (01) ==
LOC: D.OPS 10:56
PROVIDERS: ATTEND Orthopaedic Surgery
DX: M86.9 Osteomyelitis, unspecified (principal)

== ENCOUNTER → 2020-05-08 10:51 | Outpatient (CLI) | payer OTHER ==
[~2020-05-08] VITALS: Ht 170.2 cm; Wt 73.2 kg
[2020-05-08 11:29] VITALS: BP 132/81; Ht 170.2 cm; Wt 73.2 kg
== END | disposition home or self-care (01) ==
LOC: D.OPS 10:30
PROVIDERS: ATTEND Orthopaedic Surgery
DX: M86.9 Osteomyelitis, unspecified (principal)

== ENCOUNTER 2020-05-09 10:20 | Outpatient (CLI) | payer OTHER ==
[~2020-05-09] VITALS: Ht 170.2 cm; Wt 73.2 kg
[2020-05-09 10:49] VITALS: BP 122/91; Ht 170.2 cm; Wt 73.2 kg
== END 2020-05-09 11:20 | disposition home or self-care (01) ==
LOC: D.OPS 10:20
PROVIDERS: ATTEND Orthopaedic Surgery
DX: M86.9 Osteomyelitis, unspecified (principal)

== ENCOUNTER 2020-05-10 10:13 | Outpatient (CLI) | payer OTHER ==
[~2020-05-10] VITALS: Ht 170.2 cm; Wt 73.2 kg
[2020-05-10 11:16] VITALS: BP 126/79; Ht 170.2 cm; Wt 73.2 kg
== END 2020-05-10 11:44 | disposition home or self-care (01) ==
LOC: D.OPS 10:13
PROVIDERS: ATTEND Orthopaedic Surgery
DX: M86.9 Osteomyelitis, unspecified (principal)

== ENCOUNTER 2020-05-11 12:34 | Outpatient (CLI) | payer OTHER ==
[~2020-05-11] VITALS: Ht 170.2 cm; Wt 73.2 kg
[2020-05-11 12:55] VITALS: Ht 170.2 cm; Wt 73.2 kg
== END 2020-05-11 13:55 | disposition home or self-care (01) ==
LOC: D.OPS 12:34
PROVIDERS: ATTEND Orthopaedic Surgery
DX: M86.9 Osteomyelitis, unspecified (principal)

== ENCOUNTER 2020-05-13 11:37 | Outpatient (CLI) | payer OTHER ==
[~2020-05-13] VITALS: Ht 170.2 cm; Wt 73.2 kg
--- NOTE | 2020-05-13 11:54 | NUR ---
ORDERS FAXED TO PHARMACY AND PHARMACY NOTIFIED.
[2020-05-13 11:58] VITALS: BP 122/80; Ht 170.2 cm; Wt 73.2 kg
--- NOTE | 2020-05-13 12:15 | NUR ---
IV ABX STARTED
--- NOTE | 2020-05-13 12:57 | NUR ---
ABX COMPLETE. PATIENT DC HOME WITH ALL BELONGINGS.
== END 2020-05-13 12:57 | disposition home or self-care (01) ==
LOC: D.OPS 11:37 → D.MS 11:45 → D.OPS 12:57
PROVIDERS: ATTEND Orthopaedic Surgery
DX: M86.9 Osteomyelitis, unspecified (principal)

== ENCOUNTER → 2020-05-14 10:05 | Day surgery (SDC) | payer OTHER ==
[~2020-05-14] VITALS: Ht 170.2 cm; Wt 73.2 kg
[2020-05-14 11:14] LABS: BASOPHILS 0.3 % (0-2); EOSINOPHILS 5.6 % (0-7); HEMATOCRIT 34.7 % (36.0-48.0); HEMOGLOBIN 11.5 g/dL (12-16); IMMATURE GRANULOCYTES 0.2 % (0-5); LYMPHOCYTES 27.7 % (15-50); MCH 30.5 pg (26.0-34.0); MCHC 33.1 g/dL (31.0-37.0); MEAN PLATELET VOLUME 10.1 fL (7.4-10.4); MONOCYTES 5.9 % (2-11); NEUTROPHILS 60.3 % (40-80); PLATELET COUNT 197 10x3/uL (130-400); RBC 3.77 10x6/uL (4.00-5.40); RDW 12.2 % (11.5-14.5); WBC 5.9 10x3/uL (4.8-10.8)
[2020-05-14 11:28] VITALS: BP 118/71; Ht 170.2 cm; Wt 73.2 kg
[2020-05-14 11:38] LABS: VANCOMYCIN - TROUGH 0.3 ug/mL (10.0-20.0)
[2020-05-14 12:27] LABS: ERYTHROCYTE SEDIMENTATION RATE 27 mm/hr (0-30)
== END | disposition home or self-care (01) ==
LOC: D.LAB 08:15 → EDSTATUS 08:15 → D.OPS 10:05 → D.LAB 10:05 → D.OPS 10:30
PROVIDERS: ATTEND Orthopaedic Surgery
DX: M86.9 Osteomyelitis, unspecified (principal)

== ENCOUNTER 2020-05-15 09:00 | Outpatient (CLI) | payer OTHER ==
[~2020-05-15] VITALS: Ht 170.2 cm; Wt 73.2 kg
[2020-05-15 09:52] VITALS: BP 105/68; Ht 170.2 cm; Wt 73.2 kg
== END 2020-05-15 10:17 | disposition home or self-care (01) ==
LOC: D.OPS 09:00
PROVIDERS: ATTEND Orthopaedic Surgery
DX: M86.9 Osteomyelitis, unspecified (principal)

== ENCOUNTER → 2020-05-15 19:41 | Outpatient (CLI) | payer OTHER ==
[2020-05-15 09:52] VITALS: BMI 25.2
== END | disposition home or self-care (01) ==
LOC: D.LABREF 19:41
PROVIDERS: ATTEND Clinical Nurse Specialist Family Health
DX: M86.9 Osteomyelitis, unspecified (principal)

== ENCOUNTER → 2020-05-16 10:12 | Outpatient (CLI) | payer OTHER ==
[~2020-05-16] VITALS: Ht 170.2 cm; Wt 73.2 kg
[2020-05-16 11:23] VITALS: BP 123/73; Ht 170.2 cm; Wt 73.2 kg
== END | disposition home or self-care (01) ==
LOC: D.OPS 10:00
PROVIDERS: ATTEND Orthopaedic Surgery
DX: M86.9 Osteomyelitis, unspecified (principal)

== ENCOUNTER 2020-10-16 17:59 | Outpatient (CLI) | payer OTHER ==
[2020-05-20 08:13] VITALS: BMI 25.2
== END 2020-10-16 23:59 | disposition home or self-care (01) ==
LOC: D.MAMMO 17:59
PROVIDERS: ATTEND Family Medicine
DX: Z12.31 Encounter for screening mammogram for malignant neoplasm of breast (principal)